=== PATIENT | male | born 1990 | race Caucasian/White ===

== ENCOUNTER 2018-01-21 05:55 | Emergency (ER) | payer OTHER ==
[2018-01-21] MEDS ORDERED: KETOROLAC 15 MG/1 ML SDV IVP ONE ×2 (06:30→06:50)
[2018-01-21] MEDS ORDERED: NS 1,000 ML IV ONE (06:30)
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
[2018-01-21] MEDS ORDERED: METOCLOPRAMIDE 10 MG/2 ML VIAL IVP ONE (06:51)
[2018-01-21] MEDS ORDERED: DEXAMETHASONE 4 MG/ML VIAL IVP ONE (07:03)
[2018-01-21 07:08] LABS: PLATELET COUNT 351 10^3/uL (150-400)
[2018-01-21 07:43] VITALS: RESP 16
[2018-01-21 08:21] VITALS: BP 108/58; PULSE 62; TEMP 98.1; O2SAT 99
== END 2018-01-21 08:21 | disposition home or self-care (01) ==
LOC: CED 05:55
DX: R51 Headache (principal); E86.9 Volume depletion, unspecified; Z87.891 Personal history of nicotine dependence
CPT/HCPCS: 80048-PO; 85025-PO; 85652-PO; 96374; J1100; J1200; J1885; J2765

== ENCOUNTER 2018-01-21 20:08 | Emergency (ER) | payer OTHER ==
[2018-01-21 20:17] VITALS: BP 137/77; TEMP 98.4
[2018-01-21] MEDS ORDERED: NS 1,000 ML IV ONE (20:34)
[2018-01-21] MEDS ORDERED: ONDANSETRON 4 MG/2 ML VIAL IVP ONE (20:34)
[2018-01-21] MEDS ORDERED: KETOROLAC 30 MG/1 ML SDV IVP ONE (20:34)
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
[2018-01-21] MEDS ORDERED: methylPREDNISolone SOD SUCC 125 MG/2 ML VIAL IVP ONE (20:35)
[2018-01-21] MEDS ORDERED: fentaNYL 100 MCG/2 ML INJ IVP ONE (21:13)
[2018-01-21] MEDS ORDERED: METOCLOPRAMIDE 10 MG/2 ML VIAL IVP ONE (21:13)
[2018-01-21] MEDS ORDERED: HYDROCOD/APAP 5/325 PREPACK#6 BTL TAKEHOME ONE (21:57)
[2018-01-21 22:17] VITALS: PULSE 87; RESP 16
[2018-01-21 22:18] VITALS: O2SAT 97
== END 2018-01-21 22:18 | disposition home or self-care (01) ==
DX: G43.009 Migraine without aura, not intractable, without status migrainosus (principal); E86.9 Volume depletion, unspecified; Z87.891 Personal history of nicotine dependence
CPT/HCPCS: 96374; J1200; J1885; J2405; J2765; J2930; J3010

== ENCOUNTER → 2018-02-23 | Outpatient (CLI) | payer OTHER ==
[~2018-02-23] MED LIST: GADOBUTROL 10 ML VIAL IVP ONE
== END ==
LOC: FIMAGING 13:16
PROVIDERS: ATTEND Psychiatry & Neurology Neurology
DX: G44.51 Hemicrania continua (principal); H02.409 Unspecified ptosis of unspecified eyelid
CPT/HCPCS: A9585

== ENCOUNTER → 2019-03-22 | Outpatient (CLI) | payer OTHER | LOC: FIMAGING 10:11 | PROVIDERS: ATTEND Psychiatry & Neurology Neurology | DX: M79.609 Pain in unspecified limb (principal); R53.1 Weakness; M50.23 Other cervical disc displacement, cervicothoracic region ==